=== PATIENT | male | born 1940 | race Caucasian/White ===

== ENCOUNTER 2022-08-05 10:30 | Day surgery (SDC) | payer OTHER ==
[2022-08-03 11:00] LABS: Absolute Lymphocytes (CBC) 2.4 K/uL (0.7-4.9); Hematocrit 48.1 % (39.6-49.0); Lymphocytes % 19.9 % (15.3-44.8); MCV 92.1 fL (80-100); MPV 8.2 fL (7.6-11.3); RBC Red Blood Cell Count 5.23 M/uL (4.33-5.43)
[2022-08-03 11:22] LABS: Protime INR 1.47
[2022-08-03 11:32] LABS: Potassium 3.9 mEq/L (3.5-5.1)
--- NOTE | 2022-08-04 07:07 | EKG ---
Test Date: 2022-08-03 Test Time: 10:24:37 [employer]: A[place]USTINA MEASUREMENT RESULTS: Intervals: Rate: 82 FL: QRSD: 84 QT: 392 QTc: 457 [place]: P: FL: QRS: 98 T: 59 INTERPRETIVE STATEMENTS: Atrial fibrillation Rightward axis Abnormal ECG Compared to ECG 08/18/2014 11:12:59 Right-axis deviation now present Sinus rhythm no longer present Sinus arrhythmia no longer present Prolonged QT interval no longer present Electronically Signed On 08-04-22 07:06:35 CDT by Lux Black
[~2022-08-05 10:30] MED LIST: ATROPINE SULF 1 MG/10 ML SYR IV ONE; FENTANYL CITR 100 MCG/2 ML ONE; FLUMAZENIL 0.1 MG/ML (5 mL VIAL) IV ONE; HYDRALAZINE HCL 20 MG/ML VIAL ONE; LIDOCAINE VISCOUS 2% SOLN 15 ML UDC ONE; METOPROLOL TARTRATE 5 MG/5 ML INJ IV ONE; MIDAZOLAM HCL 5 ML ONE; NA CHLORIDE 0.9% 500 ML ONE; PHENOL 1.4% ORAL SPRAY 180ML ONE
[2022-08-05] MEDS ORDERED: LIDOCAINE VISCOUS 2% SOLN 15 ML UDC ONE (13:08)
[2022-08-05] MEDS ORDERED: AMIODARONE IN DEXTROSE,ISO-OSM 360 MG/200 ML BAG IV ONE (13:18)
[2022-08-05] MEDS ORDERED: AMIODARONE HCL 150 MG in D5W 100 ML IV ONE (13:30)
--- NOTE | 2022-08-05 13:34 | OP ---
Date of Procedure: 08/05/2022 Surgeon: MITCH MORALES Procedures Performed: 1.Transesophageal echocardiogram. 2.Electrical cardioversion using 200 joules in synchronized manner or fashion. Indication: Atrial fibrillation. Description Of Procedure: After risks, benefits, and alternatives were explained, the patient agreed to procedure and signed informed consent. The patient was brought into the OR room 3 and after prop er time-out, the back of the throat was numbed using lidocaine. I gave 5 mg of Versed and then subse quently I inserted the NAHUM probe without difficulties and there was no LA thrombus. NAHUM probe was re moved and then synchronized 200 joule electrical cardioversion was performed successfully converting into sinus rhythm. Conclusion: Successful NAHUM-guided cardioversion. Plan: Load with 150 mg of amiodarone IV and then put him on 200 mg twice a day and see me in the off ice in 4 weeks. SR/MODL Voice ID: [id number] Report ID: [id number]
--- NOTE | 2022-08-05 13:49 | TEE ---
TRANSESOPHAGEAL ECHOCARDIOGRAM REPORT CARDIOLOGY DEPARTMENT DATE OF STUDY: 08/05/2022 HEIGHT: 5'7" WEIGHT: 215 lbs DIAGNOSIS: CARDIOVERSION FLATWORK TIER COMMENTS: NAHUM CARDIAC HISTORY: CATHERIZATION: SURGERY: PROSTHETIC VALVE: PACEMAKER: 2 DIMENSIONAL ASSESSMENT: RIGHT ATRIUM: LEFT ATRIUM: RIGHT VENTRICLE: LEFT VENTRICLE: TRICUSPID VALVE: MITRAL VALVE: PULMONIC VALVE: AORTIC VALVE: PERICARDIAL EFFUSION: AORTIC ROOT: EJECTION FRACTION: 55-60% LEFT VENTRICULAR WALL MOTION: DOPPLER/COLOR FLOW: COMMENTS: 1. TRANSESOPHAGEAL ECHOCARDIOGRAM PROBE IS INSERTED WITHOUT DIFFICULTY. 2. NORMAL LEFT VENTRICULAR EJECTION FRACTION 55-60% 3. NO LEFT ATRIAL APPENDAGE THROMBUS IS SEEN TECHNOLOGIST: CONNIE VUONG
--- NOTE | 2022-08-09 10:21 | EKG ---
Test Date: 2022-08-05 Test Time: 14:01:41 Videotape Operator: CEDRIC MEASUREMENT RESULTS: Intervals: Rate: 72 RI: 220 QRSD: 80 QT: 436 QTc: 477 [place]: P: 58 RI: 220 QRS: 88 T: 73 INTERPRETIVE STATEMENTS: Sinus rhythm with 1st degree AV block Otherwise normal ECG Compared to ECG 08/03/2022 10:24:37 First degree AV block now present Atrial fibrillation no longer present Right-axis deviation no longer present Electronically Signed On 08-09-22 10:14:33 CDT by Lux Black
== END 2022-08-05 14:28 | disposition home or self-care (01) ==
LOC: CCL 10:30
PROVIDERS: ATTEND Internal Medicine
DX: I48.91 Unspecified atrial fibrillation (principal); I11.0 Hypertensive heart disease with heart failure; I50.9 Heart failure, unspecified; Z87.891 Personal history of nicotine dependence; Z79.01 Long term (current) use of anticoagulants; Z79.899 Other long term (current) drug therapy
CPT/HCPCS: 93005 ×2; 93312; 85025; 80048; 36415; 85610; 85730; 92960; J2250; J0282; J7040; J0360; J0461; J3010

== ENCOUNTER 2022-09-05 08:10 | Emergency (ER) | payer OTHER ==
--- OUTSIDE RECORDS SUMMARY | 2022-09-05 08:12 | XMS REPORT | Continuity of Care Document ---
:1940 Author Organization [facility] t Address [address] [place] [address] Care Team Providers Name Role Phone Ramesh-Landon_A_AH Attending Clinician Unavailable Ramesh-Landon_A_AH Admitting Clinician Unavailable Payers Payer Name Policy Type Policy Number Effective Date Expiration Date S humberto [facility] [place] - [id number] [facility] (MEDICARE REPLACEMENT/ADVANT AGE - HMO) Problems This patient has no known problems. Allergies, Adverse Reactions, Alerts This patient has no known allergies or adverse reactions. Medications This patient has no known medications. Procedures This patient has no known procedures. Encounters Start End Encounter Admission Attending Care Care Encounter Source Date/Time Date/Time Type Type Clinicians Facility Department ID 2019-04-25 2019-04-25 Outpatient Enrrique [facility] [phone] [facility] 07:18:00 07:18:00 _A_AH [id number] Family Practic e Results This patient has no known results.
--- NOTE | 2022-09-05 09:12 | RAD REPORT ---
[facility] DESCRIPTION[facility]20[facility] 8:50 am CLINICAL HISTORY: Right leg pain and swelling. COMPARISON: None. FINDINGS: Right common femoral, superficial femoral, greater saphenous, popliteal and right posterio r tibial veins are compressible and demonstrate augmentation. Doppler demonstrates good flow. Grayscale, color and spectral analysis performed on all vessels IMPRESSION: No evidence of deep venous thrombosis involving the right lower extremity.
--- NOTE | 2022-09-05 09:13 | RAD REPORT ---
EXAM DESCRIPTION: US - Lower Extremity Artery Uni Ltd - 09/05/2022 8:50 am CLINICAL HISTORY: Right leg pain COMPARISON: None FINDINGS: The right common femoral, superficial femoral and popliteal arteries demonstrate biphasic waveforms The right posterior tibial and dorsalis pedis arteries demonstrate biphasic waveforms No high-grade stenosis/occlusion Grayscale, color and spectral analysis performed on all vessels IMPRESSION: Mild distal lower extremity arterial disease
--- NOTE | 2022-09-05 10:10 | RAD REPORT ---
EXAM DESCRIPTION: RAD - Femur Right - 09/05/2022 9:14 am CLINICAL HISTORY: Leg pain FINDINGS: No fracture is seen. Mild osteoarthritis right hip Osteoporosis
--- NOTE | 2022-09-05 10:17 | ER ---
Nurse's Notes [facility] Name: Babak Ng Age: 82 yrs Sex: Male : 1940 Arrival Date: 09/05/2022 Time: 08:10 Bed 5 Private MD: Diagnosis: Pain in right leg Presentation: 09/05 08:17 Chief complaint: Patient states: R hip/ thigh pain x 1 week. Denies injury. Coronavirus ss screen: Client denies travel out of the [place] in the last 14 days. Ebola Screen: Patient denies exposure to infectious person. Patient denies travel to an Ebola-affected area in the 21 days before illness onset. Initial Sepsis Screen: Does the patient meet any 2 criteria? No. Patient's initial sepsis screen is negative. Does the patient have a suspected source of infection? No. Patient's initial sepsis screen is negative. Risk Assessment: Do you want to hurt yourself or someone else? Patient reports no desire to harm self or others. Onset of symptoms was August 29, 2022. 08:17 Method Of Arrival: Wheelchair ss 08:17 Acuity: MACK 3 ss Historical: - Allergies: 08:24 No Known Allergies; hb - Immunization history:: Adult Immunizations up to date. - Social history:: Smoking status: Patient denies any tobacco usage or history of. Screenin:25 [facility] ED Fall Risk Assessment (Adult) Score/Fall Risk Level 0 - 2 = Low Risk hb Oriented to surroundings, Maintained a safe environment. Abuse screen: Denies threats or abuse. Denies injuries from another. Nutritional screening: No deficits noted. Tuberculosis screening: No symptoms or risk factors identified. Assessment: 08:24 General: Appears in no apparent distress. Behavior is calm, cooperative. Pain: Pain hb currently is 10 out of 10 on a pain scale. Neuro: Level of Consciousness is awake, alert, obeys commands, Oriented to person, place, time, situation. Cardiovascular: Patient's skin is warm and dry. Respiratory: Respiratory effort is even, unlabored, Respiratory pattern is regular, agonal. GI: No signs and/or symptoms were reported involving the gastrointestinal system. : No signs and/or symptoms were reported regarding the genitourinary system. EENT: No signs and/or symptoms were reported regarding the EENT system. Derm: Skin is pink, warm \T\ dry. Musculoskeletal: Reports right hip pain. 09:28 Reassessment: Patient appears in no apparent distress at this time. Patient and/or hb family updated on plan of care and expected duration. Pain level reassessed. Patient is alert, oriented x 3, equal unlabored respirations, skin warm/dry/pink. 10:30 Reassessment: Patient appears in no apparent distress at this time. Patient and/or hb family updated on plan of care and expected duration. Pain level reassessed. Patient is alert, oriented x 3, equal unlabored respirations, skin warm/dry/pink. Vital Signs: 08:17 BP 157 / 76; Pulse 86; Resp 18; Temp 98.2; Pulse Ox 95% ; Weight 97.52 kg; Height 5 ft. hb 7 in. ; Pain 10/10; 09:28 BP 129 / 82; Pulse 82; Resp 15; Pulse Ox 100% on R/A; hb 08:17 Body Mass Index 33.67 (97.52 kg, 170.18 cm) hb 08:17 Pain Scale: Adult hb ED Course: 08:00 Allergy band placed. hb 08:11 Patient arrived in ED. rg4 08:11 Chiquis Whitfield [facility]NP-C [facility]. kb 08:11 Quinton Ortega MD is Attending Physician. kb 08:17 Arm band placed on right wrist. ss 08:18 Triage completed. ss 08:26 No provider procedures requiring assistance completed. hb 08:52 US Lower Extremity Artery Uni Ltd In Process Unspecified. EDMS 08:52 US Extremity Venous Unilateral Ltd In Process Unspecified. EDMS 09:16 Femur Right XRAY In Process Unspecified. EDMS 10:32 Patient did not have IV access during this emergency room visit. hb Administered Medications: 10:32 Drug: traMADol PO 50 mg Route: PO; hb 10:32 Follow up: Response: Medication administered at discharge. hb Medication: 10:32 VIS not applicable for this client. hb Outcome: 10:16 Discharge ordered by . kb 10:32 Discharged to home via wheelchair, with family. hb 10:32 Condition: stable 10:32 Discharge instructions given to patient, family, Instructed on discharge instructions, follow up and referral plans. medication usage, Demonstrated understanding of instructions, follow-up care, medications, Prescriptions given X 1. 10:33 Patient left the ED. hb Signatures: Dispatcher [employer] EDMS Chiquis Whitfield, JG-C ORACLE TECHNICAL DEVELOPER-Naty Chen RN RN Jeny Rojas RN RN ph Raquel Chu RN RN Ashley Knutson4 Corrections: (The following items were deleted from the chart) 08:24 08:17 BP 157 / 76; Pulse 86bpm; Resp 18bpm; Pulse Ox 95%; ph hb
--- NOTE | 2022-09-05 10:17 | EDPHYS ---
Physician Documentation [facility] Name: Babak Ng Age: 82 yrs Sex: Male : 1940 Arrival Date: 09/05/2022 Time: 08:10 Bed 5 Private MD: ED Physician Quinton Ortega HPI: 09/05 08:42 This 82 yrs old Male presents to ER via Wheelchair with complaints of Hip Pain. kb 08:42 The patient presents with pain, tenderness. The complaints affect the lateral aspect of kb right thigh. Context: The problem was sustained at home, resulted from an unknown cause, the patient can partially bear weight, can ambulate using a cane. Onset: The symptoms/episode began/occurred 1 week(s) ago. Modifying factors: The symptoms are alleviated by nothing. the symptoms are aggravated by weight bearing. Associated signs and symptoms: The patient has no apparent associated signs or symptoms. Treatment prior to arrival includes: no previous treatment. Severity of symptoms: At their worst the symptoms were moderate, in the emergency department the symptoms are unchanged. The patient has not experienced similar symptoms in the past. The patient has not recently seen a physician. Pt c/o right lateral thigh pain that started one week ago. Denies injury or trauma. States he was up and down from a step ladder prior to the pain beginning. . Historical: - Allergies: 08:24 No Known Allergies; hb - Immunization history:: Adult Immunizations up to date. - Social history:: Smoking status: Patient denies any tobacco usage or history of. ROS: 08:41 Constitutional: Negative for fever, chills, and weight loss. kb 08:41 MS/extremity: Positive for pain, of the lateral aspect of right thigh. 08:41 All other systems are negative. Exam: 08:41 Constitutional: This is a well developed, well nourished patient who is awake, alert, kb and in no acute distress. Head/Face: Normocephalic, atraumatic. ENT: Moist Mucous membranes Cardiovascular: Regular rate and rhythm with a normal S1 and S2. No gallops, murmurs, or rubs. No pulse deficits. Respiratory: Respirations even and unlabored. No increased work of breathing. Talking in full sentences Skin: Warm, dry with normal turgor. Normal color. Neuro: Awake and alert, GCS 15, oriented to person, place, time, and situation. Moves all extremities. Normal gait. 08:41 Musculoskeletal/extremity: Extremities: grossly normal except: noted in the lateral aspect of right thigh: pain, tenderness, ROM: intact in all extremities, Circulation is intact in all extremities. Sensation intact. Weight bearing: can bear weight with assistance only, uses cane. Vital Signs: 08:17 BP 157 / 76; Pulse 86; Resp 18; Temp 98.2; Pulse Ox 95% ; Weight 97.52 kg; Height 5 ft. hb 7 in. ; Pain 10/10; 09:28 BP 129 / 82; Pulse 82; Resp 15; Pulse Ox 100% on R/A; hb 08:17 Body Mass Index 33.67 (97.52 kg, 170.18 cm) hb 08:17 Pain Scale: Adult hb MDM: 08:11 Patient medically screened. kb 08:42 Differential diagnosis: strain, fracture, dvt, arterial occlusion. Data reviewed: vital kb signs, nurses notes. 10:15 Counseling: I had a detailed discussion with the patient and/or guardian regarding: the kb historical points, exam findings, and any diagnostic results supporting the discharge/admit diagnosis, radiology results, the need for outpatient follow up, a family practitioner, a orthopedic surgeon, to return to the emergency department if symptoms worsen or persist or if there are any questions or concerns that arise at home. 09/05 08:20 Order name: Femur Right XRAY; Complete Time: 10:13 kb 09/05 08:20 Order name: US Extremity Venous Unilateral Ltd; Complete Time: 09:23 kb 09/05 08:20 Order name: Lower Extremity Artery Uni Ltd; Complete Time: 09:23 kb Administered Medications: 10:32 Drug: traMADol PO 50 mg Route: PO; hb 10:32 Follow up: Response: Medication administered at discharge. hb Disposition: 12:01 Co-signature as Attending Physician, Quinton Ortega MD I agree with the assessment and kdr plan of care. Disposition Summary: 09/05/22 10:16 Discharge Ordered Location: Home kb Condition: Stable kb Diagnosis - Pain in right leg kb Followup: kb - With: Emergency Department - When: As needed - Reason: Worsening of condition Followup: kb - With: Private Physician - When: 2 - 3 days - Reason: Recheck today's complaints, Continuance of care, Re-evaluation by your physician Discharge Instructions: - Discharge Summary Sheet kb - Musculoskeletal Pain kb - Muscle Strain, [id number] kb Forms: - Medication Reconciliation Form kb - Thank You Letter kb - Antibiotic Education kb - Prescription Opioid Use kb - [email or web address] kb Prescriptions: - orphenadrine citrate 100 mg Oral Tablet Sustained Release - take 1 tablet by ORAL route 2 times per day As needed; 20 tablet; Refills: 0, kb Product Selection Permitted Signatures: Dispatcher [employer] EDChiquis Mata, ELECTRICAL PARTS RECONDITIONER-C JG-Quinton Mota MD MD kdr Baxter, Heather, RN RN
[2022-09-05] MEDS ORDERED: TRAMADOL HCL 50 MG TAB ONE (10:33)
[2022-09-05 10:41] VITALS: TEMP 98.2
[2022-09-05 10:43] VITALS: BP 129/82; O2SAT 100
== END 2022-09-05 10:33 | disposition home or self-care (01) ==
LOC: ER 08:10
DX: M79.604 Pain in right leg (principal)
CPT/HCPCS: 93926; 93971; 99283